=== PATIENT | male | born 1975 | race Caucasian/White ===

== ENCOUNTER 2019-06-04 11:44 | Inpatient (IN) | payer OTHER ==
[~2019-06-04] VITALS: Ht 175.3 cm; Wt 103.9 kg
[2019-06-04 12:33] LABS: BASOPHILS ABSOLUTE AUTO 0.04 K/mm3 (0.00-0.23); BASOPHILS PERCENT AUTO 0 % (0-2); EOSINOPHILS ABSOLUTE AUTO 0.03 K/mm3 (0.00-0.68); EOSINOPHILS PERCENT AUTO 0 % (0-6); Hematocrit 48.4 % (37.0-53.0); IMMATURE GRAN ABSOLUTE AUTO 0.08 K/mm3 (0.00-0.10); IMMATURE GRAN PERCENT AUTO 1 % (0-1); LYMPHOCYTES ABSOLUTE AUTO 1.26 K/mm3 (0.84-5.20); LYMPHOCYTES PERCENT AUTO 9 % (21-46); MONOCYTES ABSOLUTE AUTO 0.87 K/mm3 (0.16-1.47); MONOCYTES PERCENT AUTO 7 % (4-13); Mean Corpuscular HGB Conc 33.1 g/dL (31.5-36.5); Mean Corpuscular Volume 88 fL (80-100); Mean Platelet Volume 12.5 fL (9.1-12.4); NEUTROPHILS ABSOLUTE AUTO 11.07 K/mm3 (1.96-9.15); NEUTROPHILS PERCENT AUTO 83 % (41-73); Platelet Count 207 K/mm3 (150-400); RDW Coefficient Variation 13.2 % (11.7-14.2); RDW Standard Deviation 42.8 fL (35.1-46.3); Red Blood Cell Count 5.52 M/mm3 (4.30-5.90); White Blood Cell Count 13.35 K/mm3 (4.00-11.30)
[2019-06-04 12:50] LABS: Alanine Aminotransfer (ALT/SGP 49 U/L (12-78); Albumin/Globulin Ratio 1.2 (0.8-1.8); Alk Phos 43 U/L (50-136); Anion Gap 7 mmol/L (6-16); Aspartate Aminotrans (AST/SGOT 24 U/L (12-37); Bilirubin, Total 0.6 mg/dL (0.1-1.0); Blood Urea Nitrogen 22 mg/dL (8-24); Bun/Creatinine Ratio 22.9 (12.0-20.0); CO2, Blood 26 mmol/L (21-32); Calcium, Blood 8.6 mg/dL (8.5-10.1); Chloride, Blood 109 mmol/L (98-108); Creatinine, Blood 0.96 mg/dL (0.60-1.20); Globulin, Blood 3.2 g/dL (2.2-4.0); Glomerular Filtration Rate >60 (60-); Glucose, Blood 141 mg/dL (70-99); Potassium, Blood 4.3 mmol/L (3.5-5.5); Sodium, Blood 142 mmol/L (136-145); Total Protein, Blood 7.2 g/dL (6.4-8.2)
[2019-06-04 13:04] LABS: Source, Urine Clean Catch
[2019-06-04 13:17] LABS: Bilirubin, Urine Neg (Neg); Blood, Urine 1+ (Neg); Glucose Qualitative, Urine Neg (Neg); Ketones, Urine Neg (Neg); Leukocyte Esterase, Urine Neg (Neg); Nitrite, Urine Neg (Neg); Protein, Urine Neg (Neg); Specific Gravity, Urine 1.025 (1.003-1.022); Urobilinogen, Urine NORM (Normal)
[2019-06-04 13:31] LABS: Appearance, Urine Clear (Clear); Color, Urine Yellow (P-Yellow)
[2019-06-04 13:32] LABS: Amorphous Light (0-Heavy); Bacteria Few /hpf; Mucus Heavy (0-Heavy); Red Blood Cells, Urine 0-2 /hpf (0-2); Squamous Epithelial Cells Not Seen /hpf (Few); White Blood Cells, Urine 0-2 /hpf (0-5)
[2019-06-04] MEDS ORDERED: NAPR220 PO (14:10)
[2019-06-04] MEDS ORDERED: ALL DAY ALLERGY10 MG PO (14:11)
[2019-06-04] MEDS ORDERED: THERA1 EACH PO (14:11)
[2019-06-04] MEDS ORDERED: PREVAGEN PO (14:13)
--- NOTE | 2019-06-04 14:40 | NUR ---
PT INTO SDS VIA LILIYARGILMA FROM ER. [facility] THIS AM APPROX 5AM. History, Chart, Medications and Allergies reviewed before start of procedure.Surgical site prepped with 2% Chlorhexidine cloth wipe. CONTINUED BOLUS WRITTEN IN ER. STARTED ORDERED ZOSYN
--- NOTE | 2019-06-04 18:22 | NUR ---
06/04/191821 Jitendra Hobson PT GIVEN ZOSYN IN ED
--- NOTE | 2019-06-04 19:50 | NUR ---
1950 ADMIT: PT ARRIVES FROM PACU S/P SMALL BOWEL RESECTION BY DR. LUCIO. PT RATES ABD PAIN 4/10 AND IS REQUESTING PORN PAIN MEDS BUT APPEARS VERY DROWSY AND RESPONSIVE TO VOICE AND TOUCH. PT AND FAMILY ORIENTED TO ROOM, BED, POLICIES AND CALL LIGHT.
--- NOTE | 2019-06-05 00:16 | NUR ---
0016: PT A&O AND NOW MAINTAINS SPO2 92% OR BETTER ON 4L VIA NC. PT RATES ABD PAIN INCREASING AND FENTANYL WINDOW SHADE ESTIMATOR BEGAN WITH ON DEMAND ONLY DOSE PER CLINICAL JUDGEMENT. TOLERATING SMALL SIPS OF WATER AND FEW ICE CHIPS AT THIS TIME. ABD APPEARS SOFT, TENDER AND MILD DISTENTION; PT DENIES NAUSEA.
[2019-06-05 05:40] LABS: BASOPHILS ABSOLUTE AUTO 0.01 K/mm3 (0.00-0.23); BASOPHILS PERCENT AUTO 0 % (0-2); EOSINOPHILS PERCENT AUTO 0 % (0-6); Hematocrit 38.6 % (37.0-53.0); Hemoglobin 12.6 g/dL (13.5-17.5); IMMATURE GRAN ABSOLUTE AUTO 0.04 K/mm3 (0.00-0.10); IMMATURE GRAN PERCENT AUTO 0 % (0-1); LYMPHOCYTES ABSOLUTE AUTO 1.02 K/mm3 (0.84-5.20); LYMPHOCYTES PERCENT AUTO 9 % (21-46); MONOCYTES ABSOLUTE AUTO 0.72 K/mm3 (0.16-1.47); MONOCYTES PERCENT AUTO 6 % (4-13); Mean Corpuscular HGB 28.9 pg (26.0-34.0); Mean Corpuscular HGB Conc 32.6 g/dL (31.5-36.5); Mean Corpuscular Volume 89 fL (80-100); NEUTROPHILS ABSOLUTE AUTO 9.52 K/mm3 (1.96-9.15); NEUTROPHILS PERCENT AUTO 84 % (41-73); Platelet Count 161 K/mm3 (150-400); RDW Coefficient Variation 13.4 % (11.7-14.2); RDW Standard Deviation 43.7 fL (35.1-46.3); Red Blood Cell Count 4.36 M/mm3 (4.30-5.90); White Blood Cell Count 11.31 K/mm3 (4.00-11.30)
[2019-06-05 06:03] LABS: Anion Gap 6 mmol/L (6-16); Blood Urea Nitrogen 15 mg/dL (8-24); Bun/Creatinine Ratio 16.8 (12.0-20.0); CO2, Blood 26 mmol/L (21-32); Calcium, Blood 7.5 mg/dL (8.5-10.1); Chloride, Blood 111 mmol/L (98-108); Creatinine, Blood 0.89 mg/dL (0.60-1.20); Glomerular Filtration Rate >60 (60-); Glucose, Blood 165 mg/dL (70-99); Potassium, Blood 4.1 mmol/L (3.5-5.5); Sodium, Blood 143 mmol/L (136-145)
--- NOTE | 2019-06-05 07:33 | NUR ---
DR LUCIO BEEN TO SEE PT RECENTLY. PT'S FAMILY IN ROOM.
--- NOTE | 2019-06-05 08:11 | NUR ---
SUMMARY: POD 1 SMALL BOWEL RESECTION BY DR. LUCIO. VSS, AFEBRILE, 4L O2 VIA NC. WOLFF PATENT HEAVY MUCOUS DARK YELLOW URINE. NO OUTPUT IN PREVENA VAC. PAIN WELL CONTROLLED WITH 25 MCG ON DEMAND LEATHER WHITENER DOSE AND IV TORDAL. ANTICIPATE OOB TO CHAIR TODAY AND CONTINUE TO MONITOR BOWEL TONES AND PAIN.
--- NOTE | 2019-06-05 11:45 | NUR ---
AUTOMATIC VULCANIZING OPERATOR SPOKE WITH DR Morgan LUCIO, SEE ORDERS. IVF BOLUS STARTED.
--- NOTE | 2019-06-05 11:48 | NUR ---
DR Morgan LUCIO HERE TO SEE PT.
--- NOTE | 2019-06-05 12:33 | NUR ---
COSMETIC SALES ADVISOR DOSE CHANGED WITH ASSIST FROM QUALITY CONTROL REPRESENTATIVE PER DR Morgan LUCIO.
--- NOTE | 2019-06-05 17:57 | NUR ---
SHIFT SUMMARY PT TOLERATING C.L., REPORTS PAIN TOLERABLE. PT BEEN ASSISTED WITH ADL'S PRN. PT AMBULATED IN HALLWAY WITH SBA TODAY. PT WAS UP TO CHAIR THIS AM. PT VOIDING. PT REPORTS NOT PASSING GAS YET. PT A/O.
--- NOTE | 2019-06-06 05:09 | NUR ---
SHIFT SUMMARY PT A&O X4 T/O SHIFT. POD#2 RESECTION; PREVENA WOUND VAC SEAL INTACT, NO LEAKS NOTED. ABD SOFT; BT X4; CLEAR DIET; PT REPORTS FLATUS THIS AM. PAIN MANAGED PER EMAR WITH COMMUNITY MARKETING COORDINATOR. PT DENIES NAUSESA AND SOB. CONT. OXIMETRY IN PLACE; 1L O2 VIA NC WHILE ASLEEP. PT INDEPENDENT IN ROOM. SCD'S TO BLE'S. CALL LIGHT IN REACH; PT DEMONSTRATES USE. WCTM UNTIL REPORT TO DAY SHIFT RN.
[2019-06-06 05:16] LABS: BASOPHILS ABSOLUTE AUTO 0.02 K/mm3 (0.00-0.23); BASOPHILS PERCENT AUTO 0 % (0-2); EOSINOPHILS PERCENT AUTO 1 % (0-6); Hematocrit 36.1 % (37.0-53.0); Hemoglobin 11.5 g/dL (13.5-17.5); IMMATURE GRAN ABSOLUTE AUTO 0.06 K/mm3 (0.00-0.10); IMMATURE GRAN PERCENT AUTO 1 % (0-1); LYMPHOCYTES ABSOLUTE AUTO 1.81 K/mm3 (0.84-5.20); LYMPHOCYTES PERCENT AUTO 17 % (21-46); MONOCYTES ABSOLUTE AUTO 1.22 K/mm3 (0.16-1.47); MONOCYTES PERCENT AUTO 11 % (4-13); Mean Corpuscular HGB 28.1 pg (26.0-34.0); Mean Corpuscular HGB Conc 31.9 g/dL (31.5-36.5); Mean Corpuscular Volume 88 fL (80-100); Mean Platelet Volume 12.8 fL (9.1-12.4); NEUTROPHILS ABSOLUTE AUTO 7.76 K/mm3 (1.96-9.15); NEUTROPHILS PERCENT AUTO 71 % (41-73); Platelet Count 159 K/mm3 (150-400); RDW Coefficient Variation 13.8 % (11.7-14.2); RDW Standard Deviation 44.4 fL (35.1-46.3); Red Blood Cell Count 4.09 M/mm3 (4.30-5.90); White Blood Cell Count 10.97 K/mm3 (4.00-11.30)
--- NOTE | 2019-06-06 05:20 | NUR ---
PATIENT IS SITTING UP AT 90 DEGREES WATCHING TV.
[2019-06-06 05:39] LABS: Anion Gap 4 mmol/L (6-16); Blood Urea Nitrogen 15 mg/dL (8-24); Bun/Creatinine Ratio 15.8 (12.0-20.0); CO2, Blood 29 mmol/L (21-32); Calcium, Blood 7.6 mg/dL (8.5-10.1); Chloride, Blood 112 mmol/L (98-108); Creatinine, Blood 0.95 mg/dL (0.60-1.20); Glomerular Filtration Rate >60 (60-); Glucose, Blood 108 mg/dL (70-99); Magnesium, Blood 2.1 mg/dL (1.6-2.4); Phosphorus, Blood 3.1 mg/dL (2.5-4.9); Potassium, Blood 4.2 mmol/L (3.5-5.5); Sodium, Blood 145 mmol/L (136-145)
--- NOTE | 2019-06-06 07:27 | NUR ---
pt visiting with his family stated earlier this am he passed flatus x1 hypo bt's dr rm by to see pt no nausea at this time pain 01/14 with wine bottle inspector amb in pfeiffer also asked if he can have a shower
--- NOTE | 2019-06-06 08:36 | NUR ---
PO PERCOCET GIVEN IV SL DIET ADV TO FULL LIQUID ENSURE AND PUDDING GIVEN DISCUSSED WITH PT GOING SLOW WITH DIET
--- NOTE | 2019-06-06 11:14 | NUR ---
increased abd pain pt stated he has been passing more gas toradol given also had pt amb in hallway no nausea told pt eat smaller amt or go back to cl if he thinks the diet may have been the cause also told pt going from senior mobile application developer to pills
--- NOTE | 2019-06-06 12:07 | NUR ---
pt eating lunch
--- NOTE | 2019-06-06 12:50 | NUR ---
pt took it slow only had small amt of soup and saved a 4 oz juice to try later
--- NOTE | 2019-06-06 17:30 | NUR ---
dr rm by to see pt discussed pt temp with him earlier had pt walk and use is/tcdb pt fever did not break cont to stay around [address] rm asked pt to just do sips and ice chips and monitor
[2019-06-07 04:13] LABS: BASOPHILS ABSOLUTE AUTO 0.03 K/mm3 (0.00-0.23); BASOPHILS PERCENT AUTO 0 % (0-2); EOSINOPHILS ABSOLUTE AUTO 0.28 K/mm3 (0.00-0.68); EOSINOPHILS PERCENT AUTO 3 % (0-6); Hematocrit 38.6 % (37.0-53.0); Hemoglobin 12.3 g/dL (13.5-17.5); IMMATURE GRAN ABSOLUTE AUTO 0.12 K/mm3 (0.00-0.10); IMMATURE GRAN PERCENT AUTO 1 % (0-1); LYMPHOCYTES ABSOLUTE AUTO 1.78 K/mm3 (0.84-5.20); LYMPHOCYTES PERCENT AUTO 20 % (21-46); MONOCYTES ABSOLUTE AUTO 0.94 K/mm3 (0.16-1.47); MONOCYTES PERCENT AUTO 10 % (4-13); Mean Corpuscular HGB 28.9 pg (26.0-34.0); Mean Corpuscular HGB Conc 31.9 g/dL (31.5-36.5); Mean Platelet Volume 12.1 fL (9.1-12.4); NEUTROPHILS ABSOLUTE AUTO 5.91 K/mm3 (1.96-9.15); NEUTROPHILS PERCENT AUTO 65 % (41-73); Platelet Count 178 K/mm3 (150-400); RDW Standard Deviation 46.8 fL (35.1-46.3); Red Blood Cell Count 4.25 M/mm3 (4.30-5.90); White Blood Cell Count 9.06 K/mm3 (4.00-11.30)
[2019-06-07 04:14] LABS: Mean Corpuscular Volume 91 fL (80-100)
[2019-06-07 04:30] LABS: Anion Gap 5 mmol/L (6-16); Blood Urea Nitrogen 17 mg/dL (8-24); Bun/Creatinine Ratio 15.7 (12.0-20.0); CO2, Blood 29 mmol/L (21-32); Calcium, Blood 7.6 mg/dL (8.5-10.1); Chloride, Blood 108 mmol/L (98-108); Creatinine, Blood 1.08 mg/dL (0.60-1.20); Glomerular Filtration Rate >60 (60-); Glucose, Blood 94 mg/dL (70-99); Sodium, Blood 142 mmol/L (136-145)
--- NOTE | 2019-06-07 18:17 | NUR ---
SHIFT SUMMARY PAIN HAS BEEN MANAGED WITH PO PAIN MEDICATION THIS SHIFT. PT REPORTS HE IS PASSING FLATUS. PT IS INDEPENDENT IN THE ROOM. FAMILY AT THE BEDSIDE. TOLERATING A FULL LIQUID DIET. VSS. WILL MONITOR UNTIL REPORT TO ONCOMING RN.
--- NOTE | 2019-06-08 05:25 | NUR ---
SUMMARY: POD 4 OPEN SMALL BOWEL RESECTION. VSS, AFEBRILE, ROOM AIR. PAIN WELL CONTROLLED WITH 1 TAB PERCOCET X1 THIS SHIFT. PT AMBULATES HALLS USING FWW IND. TOELRATING FULL LIQUID DIET, PASSING GAS. ABD BINDER IN PLACE, MEPIPORE DRESSING SECURED WITH ABD BINDER. ANTICIPATE POSSIBLE DC HOME THIS DAY.
[2019-06-08] MEDS ORDERED: ACET325 PO (17:39)
[2019-06-08] MEDS ORDERED: HYDR1TAB94 PO (17:40)
--- NOTE | 2019-06-08 18:27 | NUR ---
DISCHARGE PT PROVIDED WITH WRITTEN AND VERBAL DISCHARGE INSTRUCTIONS. PT AND HIS SPOUSE REPORTED UNDERSTANDING AFTER QUESTIONS WERE ANSWERED. PRESCRIPTION PROVIDED. PT EDUCATED TO SCHEDULE APPOINTMENT WITH DR. LUCIO'S OFFICE IN 10-14 DAYS. CLEAN DRESSINGS PROVIDED. PT AMBULATED OUT TO VEHICLE, DENIED NEED FOR ESCORT OUT IN W/C.
--- NOTE | 2019-06-08 18:29 | NUR ---
DR. LUCIO IS AWARE THAT PT HAS NOT HAD A BOWEL MOVEMENT POST-OP. PT IS PASSING FLATUS AND TOLERATING REGULAR DIET. PT WAS ENCOURAGED TO AMBULATE FREQUENTLY IN ORDER TO HELP ACTIVATE BOWELS. PT EDUCATED TO NOTIFY DR. LUCIO IF HE DEVELOPS NAUSEA/VOMITING OR CONTINUES TO BE UNABLE TO HAVE A BOWEL MOVEMENT.
== END 2019-06-08 18:30 | disposition home or self-care (01) | DRG 853 ==
LOC: ER 11:44 → SURS 11:45
PROVIDERS: Physician Assistant; ADMIT Surgery
PROC: 0DT80ZZ Resection of Small Intestine, Open Approach (ICD-10-PCS; principal; 2019-06-04 08:30)
DX: A41.9 Sepsis, unspecified organism (principal); K65.1 Peritoneal abscess; K57.00 Diverticulitis of small intestine with perforation and abscess without bleeding
CPT/HCPCS: 36415; 74177; 80048; 80053; 81001; 83605; 83690; 83735; 84100; 84484; 85025; 87040; 93005; 93010; 94762; 96361-59; 96374-59; 96375-59; 99285-25; C9113; J1100; J1650; J1885; J2250; J2270; J2405; J2543; J2704; J2710; J3010; J7030; J7120; Q9967

== ENCOUNTER 2022-03-22 18:43 | Emergency (ER) | payer OTHER ==
[~2022-03-22] VITALS: Ht 175.3 cm; Wt 108.9 kg
[~2022-03-22 18:43] MED LIST: ACET325 PO; ALL DAY ALLERGY10 MG PO; HYDR1TAB94 PO; NAPR220 PO; PREVAGEN PO; THERA1 EACH PO
[2022-03-22] MEDS ORDERED: CELEBREX200 MG PO (19:29)
[2022-03-22] MEDS ORDERED: Robaxin750 MG PO (20:44)
== END 2022-03-22 20:51 | disposition home or self-care (01) ==
LOC: ER 18:43
DX: M54.16 Radiculopathy, lumbar region (principal); Z79.899 Other long term (current) drug therapy
CPT/HCPCS: A9270; J1885

== ENCOUNTER 2022-03-31 13:25 | Emergency (ER) | payer OTHER ==
[~2022-03-31] VITALS: Ht 175.3 cm; Wt 104.3 kg
[~2022-03-31 13:25] MED LIST changes: +CELEBREX200 MG PO; +Robaxin750 MG PO
[2022-03-31] MEDS ORDERED: Robaxin750 MG PO (14:44)
== END 2022-03-31 14:54 | disposition home or self-care (01) ==
LOC: ER 13:25
DX: M54.32 Sciatica, left side (principal); Z79.899 Other long term (current) drug therapy
CPT/HCPCS: 96372; 99283-25; J1885

== ENCOUNTER 2022-06-19 15:28 | Emergency (ER) | payer OTHER ==
[~2022-06-19] VITALS: Ht 175.3 cm; Wt 107.0 kg
[2022-06-19 16:19] LABS: Source, Urine Clean Catch
[2022-06-19 16:29] LABS: Appearance, Urine Hazy (Clear); Bilirubin, Urine Neg (Neg); Blood, Urine Neg (Neg); Color, Urine Yellow (P-Yellow); Glucose Qualitative, Urine Neg (Neg); Ketones, Urine Neg (Neg); Leukocyte Esterase, Urine Neg (Neg); Nitrite, Urine Neg (Neg); Protein, Urine 1+ (Neg); Urobilinogen, Urine NORM (Normal)
[2022-06-19 16:50] LABS: Uric Acid Crystals Rare /hpf
[2022-06-19 16:51] LABS: Hyaline Casts 25-50 /lpf (0-2)
[2022-06-19 16:52] LABS: Granular Casts 0-2 /lpf (0)
[2022-06-19 16:54] LABS: Mucus Light (0-Heavy); Red Blood Cells, Urine 0-2 /hpf (0-2)
[2022-06-19 16:55] LABS: Amorphous Light (0-Heavy); Bacteria Mod /hpf; Squamous Epithelial Cells Not Seen /hpf (Few)
[2022-06-20] MEDS ORDERED: GABA300 PO (16:25)
== END 2022-06-19 18:08 | disposition home or self-care (01) ==
LOC: ER 15:28
PROVIDERS: Physician Assistant
DX: M54.42 Lumbago with sciatica, left side (principal); G89.29 Other chronic pain; Z79.899 Other long term (current) drug therapy
CPT/HCPCS: 81001; 87086

== ENCOUNTER 2022-06-20 11:48 | Emergency (ER) | payer OTHER ==
[~2022-06-20] VITALS: Ht 177.8 cm; Wt 99.8 kg
[2022-06-20] MEDS ORDERED: GABA300 PO (16:25)
== END 2022-06-20 16:38 | disposition home or self-care (01) ==
LOC: ER 11:48
DX: M51.17 Intervertebral disc disorders with radiculopathy, lumbosacral region (principal); R39.14 Feeling of incomplete bladder emptying; Z79.899 Other long term (current) drug therapy
CPT/HCPCS: 51798; 72148; J1100; J1170; J1885